=== PATIENT | male | born 1970 | race Caucasian/White ===

== ENCOUNTER → 2017-05-15 | Outpatient (CLI) | payer OTHER ==
[2017-05-15 08:41] LABS: URINE APPEARANCE CLEAR; URINE COLOR YELLOW
[2017-05-15 08:42] LABS: URINE BILIRUBIN NEGATIVE (NEGATIVE); URINE BLOOD NEGATIVE (NEGATIVE); URINE GLUCOSE NEGATIVE (NEGATIVE); URINE KETONE NEGATIVE (NEGATIVE); URINE LEUKOCYTE ESTERASE NEGATIVE (NEGATIVE); URINE MUCUS PRESENT (NOT PRESENT); URINE NITRATE NEGATIVE (NEGATIVE); URINE PROTEIN(semi-quant) TRACE mg/dL (NEGATIVE); URINE UROBILINOGEN NORMAL (NORMAL)
[2017-05-15 16:05] LABS: TESTOSTERONE 620 ng/dL (240-871)
== END ==
LOC: LAB 07:45
PROVIDERS: Family Medicine
DX: N52.9 Male erectile dysfunction, unspecified (principal); R39.12 Poor urinary stream

== ENCOUNTER → 2018-03-03 | Outpatient (CLI) | payer OTHER ==
[2018-03-03 18:03] LABS: CALCIUM 9.7 mg/dL (8.4-10.2); POTASSIUM 4.6 mmol/L (3.6-5.0)
== END ==
LOC: LAB 07:45
PROVIDERS: Family Medicine
DX: Z13.1 Encounter for screening for diabetes mellitus (principal); Z12.39 Encounter for other screening for malignant neoplasm of breast; Z00.00 Encounter for general adult medical examination without abnormal findings; N52.9 Male erectile dysfunction, unspecified; M25.80 Other specified joint disorders, unspecified joint; Z82.49 Family history of ischemic heart disease and other diseases of the circulatory system

== ENCOUNTER → 2019-03-03 | Outpatient (CLI) | payer BC ==
[2019-03-03 07:51] LABS: ALBUMIN 4.4 g/dL (3.5-5.0); POTASSIUM 4.4 mmol/L (3.5-5.1)
[2019-03-03 07:52] LABS: CALCIUM 9.8 mg/dL (8.3-10.5)
[2019-03-03 07:54] LABS: TOTAL PROTEIN 7.3 g/dL (6.4-8.3)
[2019-03-03 07:56] LABS: TOTAL BILIRUBIN 0.6 mg/dL (0.2-1.2)
== END ==
LOC: LAB 07:25
PROVIDERS: Family Medicine
DX: Z00.00 Encounter for general adult medical examination without abnormal findings (principal); Z13.1 Encounter for screening for diabetes mellitus; Z13.6 Encounter for screening for cardiovascular disorders; N52.9 Male erectile dysfunction, unspecified

== ENCOUNTER → 2020-03-04 | Outpatient (CLI) | payer BC ==
[2020-03-04 09:21] LABS: EOS # 0.2 (0.04-0.40); EOS % 1.9 % (0.0-4.0); HEMATOCRIT 42.6 % (42.0-52.0); LYMPH# 1.5 (1.50-4.00); MEAN CELL VOLUME 84 fl (78-100); MEAN CORPUSCULAR HEMOGLOBIN 28 pg (27-31); MEAN CORPUSCULAR HGB CONC 33 g/dL (33-37); MEAN PLATELET VOLUME 9.3 fl (7.4-10.4); MONO # 0.6 (0.20-0.80); NEU # 5.8 (1.40-6.50); PLATELET COUNT 252 K/mm3 (130-400); RED BLOOD COUNT 5.07 M/mm3 (4.20-5.60); RED CELL DISTRIBUTION WIDTH 14.8 % (11.5-14.5); WHITE BLOOD COUNT 8.1 K/mm3 (4.8-10.8)
[2020-03-04 09:52] LABS: POTASSIUM 4.9 mmol/L (3.5-5.1)
[2020-03-04 09:53] LABS: ALBUMIN 4.4 g/dL (3.5-5.0)
[2020-03-04 09:54] LABS: CALCIUM 9.4 mg/dL (8.3-10.5)
[2020-03-04 09:55] LABS: TOTAL PROTEIN 6.9 g/dL (6.4-8.3)
[2020-03-04 09:57] LABS: TOTAL BILIRUBIN 0.5 mg/dL (0.2-1.2)
== END ==
LOC: LAB 09:02
PROVIDERS: Family Medicine
DX: Z00.00 Encounter for general adult medical examination without abnormal findings (principal); Z13.6 Encounter for screening for cardiovascular disorders; Z12.5 Encounter for screening for malignant neoplasm of prostate

== ENCOUNTER → 2020-10-14 | Day surgery (SDC) | payer BC | END | disposition home or self-care (01) | LOC: MSO 07:21 | DX: Z12.11 Encounter for screening for malignant neoplasm of colon (principal); D12.8 Benign neoplasm of rectum | CPT/HCPCS: 00811; J2405; J2704; J7120 ==

== ENCOUNTER → 2021-03-11 | Outpatient (CLI) | payer BC ==
[2021-03-11 07:55] LABS: ALBUMIN 4.4 g/dL (3.5-5.0); POTASSIUM 4.1 mmol/L (3.5-5.1)
[2021-03-11 07:57] LABS: CALCIUM 9.6 mg/dL (8.3-10.5)
[2021-03-11 07:58] LABS: TOTAL PROTEIN 7.3 g/dL (6.4-8.3)
[2021-03-11 08:00] LABS: TOTAL BILIRUBIN 0.6 mg/dL (0.2-1.2)
== END ==
LOC: LAB 07:02
PROVIDERS: Family Medicine
DX: Z00.00 Encounter for general adult medical examination without abnormal findings (principal)

== ENCOUNTER → 2023-03-25 | Outpatient (CLI) | payer MEDICAID | LOC: LAB 08:37 | DX: R39.12 Poor urinary stream (principal) ==

== ENCOUNTER → 2023-04-08 | Outpatient (CLI) | payer MEDICAID | LOC: RAD 14:33 | DX: M25.561 Pain in right knee (principal) ==